=== PATIENT | female | born 1980 | race Caucasian/White ===

== ENCOUNTER 2021-04-23 08:14 | Emergency (ER) | payer OTHER ==
[2021-04-23] MEDS ORDERED: AUGMENTIN 875-1 EACH PO (08:52)
== END 2021-04-23 09:02 | disposition home or self-care (01) ==
LOC: ER1 08:14
DX: K04.7 Periapical abscess without sinus (principal); K02.9 Dental caries, unspecified; I10 Essential (primary) hypertension; E03.9 Hypothyroidism, unspecified; Z88.8 Allergy status to other drugs, medicaments and biological substances; F17.210 Nicotine dependence, cigarettes, uncomplicated
CPT/HCPCS: 99282